=== PATIENT | male | born 1965 | race African-American/Black ===

== ENCOUNTER 2017-07-03 19:58 | Emergency (ER) | payer OTHER ==
[~2017-07-03] VITALS: Ht 198.1 cm; Wt 122.0 kg
--- NOTE | 2017-07-03 20:54 | ER.PDOC ---
General Chief Complaint: Extremities Stated Complaint: INJURED LFT FOOT Time seen by MD: 20:52 Source: patient Exam Limitations: no limitations History of Present Illness Initial Comments Left foot pain and swelling for 1 week Severity: moderate Exacerbated By: walking movement Relieved By: rest Allergies: Coded Allergies: No Known Allergies (Unverified , 07/03/17) Past Medical History Medical History: diabetes, hypertension Surgical History: knee Social History Smoking: non-smoker Alcohol Use: rarely Drug Use: none Review of Systems Constitutional: no symptoms reported Respiratory: no symptoms reported Cardiovascular: no symptoms reported Musculoskeletal: see HPI All Other Systems: Reviewed and Negative Physical Exam General Appearance: Alert, No Apparent Distress Lower Extremity: tenderness (plantar left foot), swelling (left foot) Vascular: no vascular compromise, pulses full/equal Neuro/Psych: sensation nml, motor nml, oriented x3, CN's nml as tested, mood/ affect nml Skin: warmth/erythema (left foot) Back/Neck: nml inspection Respiratory: no resp distress, breath sounds nml CVS: reg rate & rhythm, heart sounds nml Abdomen: non-tender, no organomegaly, no bruit/mass Results/Orders Results/Orders Laboratory Tests Test 07/03/17 20:54 White Blood Count 5.3 10^3/uL (4.5-11.0) Red Blood Count 4.53 10^6/uL (4.50-5.90) Hemoglobin 11.8 g/dL (13.9-16.3) Hematocrit 35.8 % (37.0-53.0) Mean Corpuscular Volume 79.0 fL (78-100) Mean Corpuscular Hemoglobin 26.0 pg (26-34) Mean Corpuscular Hemoglobin Concent 33.0 g/dL (33-37) Red Cell Distribution Width 15.5 % (11.5-14.5) Platelet Count 237 10^3/uL (150-400) Mean Platelet Volume 10.0 fL (7.8-11.0) Neutrophils (%) (Auto) 54.8 % (41.0-85.0) Lymphocytes (%) (Auto) 36.2 % (24.0-44.0) Monocytes (%) (Auto) 6.2 % (5.0-12.0) Neutrophils # (Auto) 2.9 10^3/uL (1.8-7.7) Lymphocytes # (Auto) 1.9 10^3/uL (1.0-4.8) Monocytes # (Auto) 0.3 10^3/uL (0.3-0.8) Eosinophils % 2.4 % (0.0-5.0) Basophils % 0.4 % (0.0-0.2) Basophils # 0.0 10^3/uL (0.0-0.1) Eosinophil Count 0.1 10^3/uL (0.0-0.2) Sodium Level 135 mmol/L (132-145) Potassium Level 4.0 mmol/L (3.6-5.2) Chloride Level 103.0 mmol/L (96-109) Carbon Dioxide Level 26.6 mmol/L (20.0-32) Anion Gap 9.4 Blood Urea Nitrogen 14 mg/dL (7-18) Creatinine 1.09 mg/dL (0.59-1.40) Estimated GFR () 86.6 (>/=60) BUN/Creatinine Ratio 12.0 Glucose Level 275 mg/dL (70-110) Calcium Level 8.5 mg/dL (8.4-10.5) Total Bilirubin 0.2 mg/dL (0.2-1.0) Aspartate Amino Transf (AST/SGOT) 26 U/L (0-35) Alanine Aminotransferase (ALT/SGPT) 34 U/L (12-78) Alkaline Phosphatase 70 U/L (50-136) Total Protein 6.7 g/dL (6.4-8.2) Albumin 3.1 g/dL (3.4-5.0) Globulin 3.6 Progress Progress Patient refused admission. He understands that his left foot can become worse resulting in amputation and sepsis, consequently . Patient signed and left AMA because he does not live here and is traveling tomorrow to [place]. I gave him a copy of the CD and results including labs. Patient also given a prescription for Bactrim DS. EKG/XRAY/CT/US CT Comments: Cellulitis with abscess left foot Departure Time of Disposition: 22:16 Disposition: 07 AGAINST MEDICAL ADVICE Impression: Primary Impression: Cellulitis and abscess of foot Condition: Against Medical Advice Referrals: PCP,UNKNOWN (PCP) PRIMARY CARE PROVIDER Duration or Time Spent with Pa: 35 mins FAHAD DANIELS MD Jul 03, 2017 20:54
[2017-07-03 21:01] LABS: BASOPHIL % 0.4 % (0.0-0.2); EOSINOPHIL # 0.1 10^3/uL (0.0-0.2); EOSINOPHIL % 2.4 % (0.0-5.0); HEMOGLOBIN 11.8 g/dL (13.9-16.3); LYMPHOCYTES # 1.9 10^3/uL (1.0-4.8); LYMPHOCYTES % 36.2 % (24.0-44.0); MONOCYTES # 0.3 10^3/uL (0.3-0.8); MONOCYTES % 6.2 % (5.0-12.0); NEUTROPHIL # 2.9 10^3/uL (1.8-7.7); NEUTROPHILS % 54.8 % (41.0-85.0); PLATELET COUNT 237 10^3/uL (150-400); RED CELL DISTRIBUTION WIDTH 15.5 % (11.5-14.5); WHITE BLOOD CELL 5.3 10^3/uL (4.5-11.0)
[2017-07-03 21:16] LABS: CALCIUM 8.5 mg/dL (8.4-10.5); CARBON DIOXIDE 26.6 mmol/L (20.0-32)
--- NOTE | 2017-07-03 21:45 | DIREP ---
PROCEDURE:CT LOWER EXTREMITY-LT W/O COMPARISON:None. INDICATIONS:Painand swelling left foot TECHNIQUE:Axial sections through the left foot were performed with sagittal and coronal reconstructions from source images. No contrast was administered. FINDINGS: BONES:There has been amputation of the 2nd toe at the level of the distal shaft of the proximal phalanx of the 2nd toe. There has been amputation of the distal 3rd metatarsal and 3rd toe. Hammertoe deformities are present in the great toe as well as the 4th and 5th toes. There is no destructive intraosseous lesion or periosteal elevation. JOINTS:There is subluxation laterally at the great toe and 2nd toe as well as in the 4th toe. SOFT TISSUES:Extensive subcutaneous edematous changes over the dorsum of the midfoot. Fluid collection is seen along the plantar aspect the distal foot in the interspace between the distal 2nd and 4th metatarsals measuring 1.22 x 0.72 cm series 3, image 97 consistent with soft tissue abscess. OTHER:Negative. CONCLUSION: 1. Previous amputations in the 2nd toe and 3rd metatarsal. 2. Extensive subcutaneous edematous changes dorsally consistent with cellulitis. 3. Fluid collection along the plantar aspect of the distal foot between the 2nd and 4th metatarsals consistent with abscess. 4. No destructive osseous lesion or periosteal elevation to suggest osteomyelitis at this time. Dictated by: Clint Olmedo M.D. on 07/03/2017 at 09:38 PM
--- NOTE | 2017-07-03 22:07 | NUR ---
AYANNA DAVIS MBA TALKING WITH PT, ENCOURAGED PT TO BE ADMITTED TO HOSPITAL FOR TREATMENT, PT DECLINED ADMISSION TO HOSPITAL.
[2017-07-03] MEDS ORDERED: CLEOCIN IM STA (22:10)
[2017-07-03] MEDS ORDERED: CLEOCIN ONE (22:13)
--- NOTE | 2017-07-03 22:21 | NUR ---
AMA PAPERWORK SIGNED AND EDUCATION PROVIDED. PATIENT ACKNOWLEDGES UNDERSTANDING OF RISKS OF LEAVING AMA. ENCOURAGED TO RETURN FOR FURTHER CONCERNS.
[2017-07-03 22:38] VITALS: BP 142/93
== END 2017-07-03 22:21 | disposition left against medical advice (07) ==
LOC: ER 19:58
DX: L03.116 Cellulitis of left lower limb (principal); E11.9 Type 2 diabetes mellitus without complications; I10 Essential (primary) hypertension
CPT/HCPCS: 36415; 73700; 80053; 85025; 96372; 99285; J3490